=== PATIENT | male | born 1985 | race Caucasian/White ===

== ENCOUNTER 2017-01-16 19:58 | Emergency (ER) | payer SELFPAY ==
[~2017-01-16 19:58] MED LIST: Iopamidol 370 76% 100 ML VIAL ONE
[2017-01-16] MEDS ORDERED: Ketorolac Tromethamine 30 MG/ML VIAL ONE (20:30)
[2017-01-16 20:38] LABS: #Basophils 0.1 thou/uL (0.0-0.2); #Eosinphils 0.8 thou/uL (0.0-0.7); #Lymphocytes 2.8 thou/uL (1.20-3.40); #Monocytes 0.8 thou/uL (0.11-0.59); #Neutrophils 5.9 thou/uL (1.40-6.50); %Basophils 1.2 % (0.0-1.0); %Eosinophils 7.3 % (0.0-10.0); %Lymphocytes 27.3 % (21.0-51.0); %Monocytes 7.9 % (0.0-10.0); %Neutrophils 56.3 % (42.0-75.0); Hemoglobin 17.3 g/dL (14.0-18.0); Mean Corpuscular HGB CONC 33.8 g/dL (32.0-36.0); Mean Corpuscular Hemoglobin 31.1 pg (27.0-31.0); Mean Corpuscular Volume 91.9 fl (80.0-94.0); Mean Platelet Volume 8.2 fL (7.4-10.4); Platelet Count 279 thou/uL (130-400); RBC Distribution Width 12.9 % (11.5-14.5); Red Blood Cell (RBC) Count 5.56 mill/uL (4.70-6.10); White Blood Cell (WBC) Count 10.4 thou/uL (4.8-10.8)
[2017-01-16 20:50] LABS: ALT (SGPT) 68 U/L (8-55); AST (SGOT) 26 U/L (5-34); Albumin 4.4 g/dL (3.5-5.0); Alkaline Phosphatase 100 U/L (40-150); Anion Gap 16 mmol/L (10-20); BUN (Urea Nitrogen) 17 mg/dL (8.9-20.6); Bilirubin, Total 0.3 mg/dL (0.2-1.2); Calc. Creatinine Clearance 0 mL/min (70-130); Calcium 9.6 mg/dL (7.8-10.44); Carbon Dioxide 25 mmol/L (22-29); Chloride 104 mmol/L (98-107); Estimated GFR-MDRD 85; Globulin 3.6 g/dL (2.4-3.5); Glucose 87 mg/dL (70-105); Potassium 4.4 mmol/L (3.5-5.1); Sodium 141 mmol/L (136-145)
[2017-01-16 20:51] LABS: CKMB 1.1 ng/mL (0-6.6); Troponin I 0.013 ng/mL (< 0.028)
--- NOTE | 2017-01-16 21:30 | RAD ---
PORTABLE CHEST: Date: 01-16-17 FINDINGS: The heart is normal in size and the lungs are clear. This portable study done at 2019 has no compari son, but appears normal. The trachea is midline. The bony structures appear normal. IMPRESSION: No acute finding. POS: HOME
--- NOTE | 2017-01-16 22:48 | CT ---
CT ANGIO OF THE CHEST: Date: 01-16-[address] of the chest was performed for evaluation of ongoing chest pain. Axial slices were acquire d after a bolus of IV contrast. Oblique coronal reformations through the pulmonary arteries were obt ained subsequently. Unfortunately, the timing of the bolus is off with most of the contrast being in the aorta and systemic arterial system. FINDINGS: There are no gross defects in the largest/main pulmonary arteries, but nothing past that can be said with certainty. It is an indeterminate study for pulmonary embolism. There is no sign of aortic dis section or aneurysm. The coronary arteries fill. The left coronary and LAD are seen particularly wel l and do not appear to have gross calcifications within them. There is no pericardiac fluid. No medi astinal mass or significant adenopathy. Some residual thymic tissues is probably present. The lungs are clear, infiltrate, effusion or pulmonary mass was appreciated. Scans went several slices into the upper abdomen but do not completely cover the adrenal glands. The liver is perhaps a little generous in size. The spleen is borderline in size at 14 cm. A small hiat al hernia is present. A curious finding on the last slice or two is multiple vessels filled with con trast around the pancreas. This is probably just a very tortuous splenic artery. These are clearly m ore arterial phase images than venous, so I do not believe they are dilated veins. IMPRESSION: 1. Indeterminate study for pulmonary embolism. 2. No obvious causes for the patient's chest pain. 3. Small hiatal hernia. 4. Size of the liver and spleen is somewhat generous. POS: HOME
[2017-01-16 22:54] LABS: Troponin I 0.011 ng/mL (< 0.028)
[2017-01-20 11:21] LABS: Lyme IgG/IgM AB <0.91 ISR (0.00-0.90)
== END 2017-01-16 23:14 | disposition home or self-care (01) ==
LOC: BURERS 19:58
DX: R07.9 Chest pain, unspecified (principal); I10 Essential (primary) hypertension
CPT/HCPCS: 36415; 71010; 71275; 80053; 82553; 84484; 85025; 85379; 86618; 93005; 96361; 96374; A4216; J1885